=== PATIENT | male | born 1975 | race Caucasian/White ===

== ENCOUNTER 2017-11-11 07:05 | Emergency (ER) | payer OTHER ==
[2017-11-11] MEDS: cefTRIAXone IM 1 GM VIAL IM (08:06)
== END 2017-11-11 08:31 | disposition home or self-care (01) ==
LOC: ER 07:05
DX: L03.115 Cellulitis of right lower limb (principal); F17.220 Nicotine dependence, chewing tobacco, uncomplicated
CPT/HCPCS: 73562; 96372; 99284; J0696